=== PATIENT | female | born 1995 | race Caucasian/White ===

== ENCOUNTER 2022-01-22 17:52 | Emergency (ER) | payer SELFPAY ==
[2022-01-22] MEDS ORDERED: Ketorolac 60 MG/2 ML SDV IM ONE (19:15)
== END 2022-01-22 20:19 | disposition home or self-care (01) ==
LOC: JD.ED 17:52
DX: M25.562 Pain in left knee (principal); Z88.2 Allergy status to sulfonamides
CPT/HCPCS: 73562; 96372; 99283; J1885